=== PATIENT | female | born 1955 | race Two or more races ===

== ENCOUNTER 2017-06-03 09:41 | Outpatient (CLI) | payer BC | END 2017-06-03 09:56 | disposition home or self-care (01) | LOC: MRI 09:41 | DX: M54.5 Low back pain (principal) | CPT/HCPCS: 72148 ==

== ENCOUNTER 2017-06-03 09:45 | Outpatient (CLI) | payer BC | END 2017-06-03 09:57 | disposition home or self-care (01) | LOC: SONOGRAMA 09:45 | DX: M25.512 Pain in left shoulder (principal) ==

== ENCOUNTER 2017-06-03 09:47 | Outpatient (CLI) | payer BC | END 2017-06-03 09:56 | disposition home or self-care (01) | LOC: RAD 09:47 | DX: M25.512 Pain in left shoulder (principal) ==

== ENCOUNTER 2018-05-22 09:55 | Outpatient (CLI) | payer BC | END 2018-05-22 10:00 | disposition home or self-care (01) | LOC: LAB 09:55 | DX: I10 Essential (primary) hypertension (principal); E78.5 Hyperlipidemia, unspecified; F17.218 Nicotine dependence, cigarettes, with other nicotine-induced disorders ==

== ENCOUNTER 2018-06-25 07:57 | Outpatient (CLI) | payer BC | END 2018-06-25 08:14 | disposition home or self-care (01) | LOC: MAMO-SONO 07:57 | DX: N60.09 Solitary cyst of unspecified breast (principal); Z12.31 Encounter for screening mammogram for malignant neoplasm of breast ==

== ENCOUNTER 2018-06-25 09:53 | Outpatient (CLI) | payer BC | END 2018-06-25 10:51 | disposition home or self-care (01) | LOC: LAB 09:53 | DX: E04.1 Nontoxic single thyroid nodule (principal); E78.00 Pure hypercholesterolemia, unspecified; B96.89 Other specified bacterial agents as the cause of diseases classified elsewhere ==